=== PATIENT | female | born 1975 | race Caucasian/White ===

== ENCOUNTER 2022-12-03 21:06 | Emergency (ER) | payer BC ==
[2022-12-03] MEDS ORDERED: MORPHINE 4 MG/ML SYR ONE ×2 (21:42→22:54)
[2022-12-03] MEDS ORDERED: ONDANSETRON 4 MG/2 ML VIAL ONE (21:43)
[2022-12-03] MEDS ORDERED: KETOROLAC 30 MG/ML INJ ONE (21:43)
[2022-12-03] MEDS ORDERED: NA CHLORIDE 0.9% 1,000 ML ONE (21:43)
[2022-12-03] MEDS ORDERED: TDAP (DIPHTH,PERTUSS(ACELL),TET VAC) 0.5 ML VIAL IMVAC ONE (21:43)
--- NOTE | 2022-12-03 22:07 | EDPHYS ---
Physician Documentation [facility] Name: Kirti Storey Age: 47 yrs Sex: Female : 1975 Arrival Date: 12/03/2022 Time: 21:06 Bed 7 Private MD: ED Physician Aiden Chao HPI: 12/03 21:19 This 47 yrs old Female presents to ER via EMS with complaints of Fall Injury. mary jo 21:19 Details of fall: The patient fell from a height, down approximately 2 stairs. Onset: mary jo The symptoms/episode began/occurred just prior to arrival. Associated injuries: The patient sustained right bonner, decreased range of motion, painful injury, swelling. 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 - Social history:: Smoking status: Patient denies any tobacco usage or history of. - Family history:: not pertinent. ROS: 21:19 Constitutional: Negative for fever, chills, and weight loss, Eyes: Negative for injury, mary jo pain, redness, and discharge, ENT: Negative for injury, pain, and discharge, Neck: Negative for injury, pain, and swelling, Cardiovascular: Negative for chest pain, palpitations, and edema, Respiratory: Negative for shortness of breath, cough, wheezing, and pleuritic chest pain, Abdomen/GI: Negative for abdominal pain, nausea, vomiting, diarrhea, and constipation, Back: Negative for injury and pain, : Negative for injury, bleeding, discharge, and swelling, Skin: Negative for injury, rash, and discoloration, Neuro: Negative for headache, weakness, numbness, tingling, and seizure, Psych: Negative for depression, anxiety, suicide ideation, homicidal ideation, and hallucinations, Allergy/Immunology: Negative for hives, rash, and allergies, Endocrine: Negative for neck swelling, polydipsia, polyuria, polyphagia, and marked weight changes, Hematologic/Lymphatic: Negative for swollen nodes, abnormal bleeding, and unusual bruising, 21:19 MS/extremity: Positive for abrasion, decreased range of motion, pain, tenderness, of the right bonner, Exam: 21:19 Constitutional: This is a well developed, well nourished patient who is awake, alert, mary jo and in no acute distress. Head/Face: Normocephalic, atraumatic. Eyes: Pupils equal round and reactive to light, extra-ocular motions intact. Lids and lashes normal. Conjunctiva and sclera are non-icteric and not injected. Cornea within normal limits. Periorbital areas with no swelling, redness, or edema. ENT: Nares patent. No nasal discharge, no septal abnormalities noted. Tympanic membranes are normal and external auditory canals are clear. Oropharynx with no redness, swelling, or masses, exudates, or evidence of obstruction, uvula midline. Mucous membranes moist. Neck: Trachea midline, no thyromegaly or masses palpated, and no cervical lymphadenopathy. Supple, full range of motion without nuchal rigidity, or vertebral point tenderness. No Meningismus. Chest/axilla: Normal chest wall appearance and motion. Nontender with no deformity. No lesions are appreciated. Cardiovascular: Regular rate and rhythm with a normal S1 and S2. No gallops, murmurs, or rubs. Normal PMI, no JVD. No pulse deficits. Respiratory: Lungs have equal breath sounds bilaterally, clear to auscultation and percussion. No rales, rhonchi or wheezes noted. No increased work of breathing, no retractions or nasal flaring. Abdomen/GI: Soft, non-tender, with normal bowel sounds. No distension or tympany. No guarding or rebound. No evidence of tenderness throughout. Back: No spinal tenderness. No costovertebral tenderness. Full range of motion. Skin: Warm, dry with normal turgor. Normal color with no rashes, no lesions, and no evidence of cellulitis. Neuro: Awake and alert, GCS 15, oriented to person, place, time, and situation. Cranial nerves II-XII grossly intact. Motor strength 5/5 in all extremities. Sensory grossly intact. Cerebellar exam normal. Normal gait. Psych: Awake, alert, with orientation to person, place and time. Behavior, mood, and affect are within normal limits. 21:19 Musculoskeletal/extremity: ROM: limited active range of motion due to pain, limited passive range of motion due to pain, Circulation is intact in all extremities. Sensation intact. Compartment Syndrome exam of affected extremity: is normal. Weight bearing: is unable to bear weight, DVT Exam: pain, swelling, tenderness, of the right leg, of the right bonner, Vital Signs: 21:10 Pulse 93; Resp 16; Pulse Ox 98% on R/A; kd3 21:12 BP 128 / 67; Weight 90.72 kg; kd3 22:00 BP 97 / 53; Pulse 86; Resp 18; Pulse Ox 97% on R/A; kd3 Corky Coma Score: 22:00 Eye Response: spontaneous(4). Motor Response: obeys commands(6). Verbal Response: rv oriented(5). Total: 15. Trauma Score (Adult): 22:00 Eye Response: spontaneous(1); Verbal Response: oriented(1); Motor Response: obeys rv commands(2); Systolic BP: > 89 mm Hg(4); Respiratory Rate: 10 to 29 per min(4); [place] Score: 15; Trauma Score: 12 MDM: 21:12 Patient medically screened. [facility] 21:22 Differential diagnosis: contusion, fracture, sprain, strain. Data reviewed: vital mary jo signs, nurses notes, lab test result(s), radiologic studies, plain films. Consideration of Admission/Observation Escalation of care including admission/observation considered. I considered the following discharge prescriptions or medication management in the emergency department Medications were administered in the Emergency Department. See MAR. Independent interpretation of the following test(s) in the Emergency Department X-Ray: My interpretation is tib fib fx. Test considered but Not performed: CT: no ct tib done. Historians other than the Patient: Family Member: various members. Care significantly affected by the following chronic conditions: none. 12/03 21:14 Order name: CBC with Diff; Complete Time: 22:40 [facility] 12/03 21:14 Order name: Comprehensive Metabolic Panel; Complete Time: 22:40 [facility] 12/03 21:14 Order name: Tib Fib Right XRAY; Complete Time: 22:40 [facility] 12/03 21:14 Order name: Ice pack; Complete Time: 21:56 [facility] 12/03 22:05 Order name: Splint - Long Leg: Posterior w/ Stirrup; Complete Time: 22:42 [facility] 12/03 22:05 Order name: Crutch Training; Complete Time: 22:42 [facility] Administered Medications: 21:46 Drug: NS 0.9% IV 1000 ml IV at 1 bolus Per protocol; 1000 mL bolus Route: IV; Rate: 1 kd3 bolus; Site: left antecubital; 23:02 Follow up: IV Status: Completed infusion; IV Intake: 1000ml rv 21:46 Drug: Ketorolac IVP 30 mg IVP once Route: IVP; Site: left antecubital; kd3 23:01 Follow up: Response: No adverse reaction rv 21:46 Drug: morphine IVP or IV 4 mg IVP once over 4 mins Route: IVP; Infused Over: 4 mins; kd3 Site: left antecubital; 23:01 Follow up: Response: No adverse reaction rv 21:46 Drug: Ondansetron IVP 4 mg IVP once; over 2 minutes Route: IVP; Site: left antecubital; kd3 23:01 Follow up: Response: No adverse reaction rv 22:00 CANCELLED (Duplicate Order): tetanus toxoid,adsorbed0.5 ml IM once; Provide Vaccine kd3 Information Statement (VIS). 22:00 Drug: Boostrix Tdap IM 0.5 ml IM once; as a single dose Route: IM; Site: left deltoid; kd3 23:01 Follow up: Response: No adverse reaction rv 22:43 Drug: morphine 4 mg IVP once over 4 mins Route: IVP; Infused Over: 4 mins; Site: left kd3 antecubital; 23:01 Follow up: Response: Medication administered at discharge. rv Disposition Summary: 12/03/22 22:07 Discharge Ordered Notes: Location: Home mary jo Problem: new mary jo Symptoms: have improved mary jo Condition: Stable mary jo Diagnosis - Fall (on) (from) other stairs and steps mary jo - Displaced spiral fracture of shaft of left tibia mary jo - Displaced oblique fracture of shaft of unspecified fibula, initial encounter for mary jo closed fracture Followup: mary jo - With: Private Physician - When: 2 - 3 days - Reason: Recheck today's complaints, Continuance of care, Re-evaluation by your physician Followup: mary jo - With: Conor Soto MD - When: 2 - 3 days - Reason: Recheck today's complaints, Re-evaluation by your physician Discharge Instructions: - Discharge Summary Sheet mary jo - Tibial and Fibular Fractures mary jo - Tibial Fracture, Adult mary jo - Tibial Fracture, Adult, [id number] mary jo Forms: - Medication Reconciliation Form mary jo - Thank You Letter mary jo - Antibiotic Education mary jo - Prescription Opioid Use mary jo - Patient Portal Instructions mary jo - Leadership Thank You Letter mary jo Prescriptions: - acetaminophen-codeine 300-30 mg Oral tablet - take 2 tablet ORAL route every 6 hours as needed for pain; 30 tablet; Refills: [facility] 0, Product Selection Permitted - ondansetron 4 mg Oral Tablet,disintegrating - take 1 tablet ORAL route every 6 hours for 5 days; 20 tablet; Refills: 0, [facility] Product Selection Permitted - Valium 5 mg Oral Tablet - take 1 tablet ORAL route every 8 hours As needed; 20 tablet; Refills: 0, [facility] Product Selection Permitted - Diclofenac Sodium 75 mg Oral tablet, delayed release (enteric coated) - take 1 tablet ORAL route 2 times per day; 20 tablet; Refills: 0, Product [facility] Selection Permitted Signatures: Dispatcher [employer] EDAiden Brown MD MD cha Doucette, Kyli RN RN kd3 Juan Simon RN rv Corrections: (The following items were deleted from the chart) 22:00 21:14 Tetanus Toxoid,Adsorbed IM 0.5 ml IM once; Provide Vaccine Information Statement kd3 (VIS). ordered. [facility] 22:00 22:00 Tetanus Toxoid,Adsorbed IM 0.5 ml IM once; Provide Vaccine Information Statement kd3 (VIS). ordered. kd3
--- NOTE | 2022-12-03 22:07 | ER ---
Nurse's Notes [facility] Name: Kirti Storey Age: 47 yrs Sex: Female : 1975 Arrival Date: 12/03/2022 Time: 21:06 Bed 7 Private MD: Diagnosis: Fall (on) (from) other stairs and steps;Displaced spiral fracture of shaft of left tibia;Displaced oblique fracture of shaft of unspecified fibula, initial encounter for closed fracture Presentation: 12/03 21:10 Chief complaint: EMS states: Pt fell approximately 3 steps and reports that she thinks kd3 her right leg might be broken. Pt was placed in a splint of scene. Pt has scrapes noted to the left bonner area. Pt reports 8/10 pain to the right leg. Pulses are present and strong in both pedal pulses. Coronavirus screen: Vaccine status:. Ebola Screen: No symptoms or risks identified at this time. Initial Sepsis Screen: Does the patient meet any 2 criteria? No. Patient's initial sepsis screen is negative. Does the patient have a suspected source of infection? No. Patient's initial sepsis screen is negative. Risk Assessment: Do you want to hurt yourself or someone else? Patient reports no desire to harm self or others. Onset of symptoms was December 03, 2022. 21:10 Method Of Arrival: EMS: [facility] kd3 21:10 Acuity: JUAN C 3 kd3 21:12 Coronavirus screen: Vaccine status: Patient reports receiving the 2nd dose of the covid kd3 vaccine. Triage Assessment: 21:12 General: Appears uncomfortable, Behavior is calm, cooperative. Pain: Complains of pain kd3 in right bonner. Neuro: Level of Consciousness is awake, alert, obeys commands, Oriented to person, place, time, situation. Respiratory: Airway is patent Trachea midline Respiratory effort is even, unlabored, Respiratory pattern is regular, symmetrical. 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 - Social history:: Smoking status: Patient denies any tobacco usage or history of. - Family history:: not pertinent. Screenin:00 [facility] ED Fall Risk Assessment (Adult) History of falling in the last 3 months, rv including since admission Yes- single mechanical fall (1 pt) Score/Fall Risk Level 3 or more points = High Risk Oriented to surroundings, Maintained a safe environment, Educated pt \T\ family on fall prevention, incl call for assistance when getting out of bed, Assessed \T\ reinforced patient's understanding of fall precautions, Provided non-skid footwear, Hourly rounding (assess needs \T\ fall precautionary measures) done, Used ambulatory aids as needed (educated on \T\ assisted with), Used gait belt as appropriate Implemented a Fall Risk Plan of Care, Apply high fall risk patient identification: yellow non skid footwear/ fall signage, Placed fall mat w/ non beveled edge next to bed, Activated bed/chair alarm, Remained w/in arm's length of patient and in sight while toileting, Offered frequent toileting (1:1 observation), Remained with patient while ambulating, Utilized family, sitter, or virtual brusher and shearer as indicated. Abuse screen: Denies threats or abuse. Denies injuries from another. 22:00 Nutritional screening: No deficits noted. Tuberculosis screening: No symptoms or risk rv factors identified. Primary Survey: 22:00 NO uncontrolled hemorrhage observed. Breathing/Chest: Spontaneous respiratory effort, rv equal unlabored respirations, breath sounds clear bilaterally, regular pattern, symmetrical chest rise and fall. 22:00 Circulation: No external hemorrhage present. Regular and strong central pulse, skin rv warm/dry/normal color. Disability Pupils are equal, round, reactive to light and accommodation. Client is alert. Exposure/Environment: A warming method has been applied: A warm blanket has been provided to the patient. Assessment: 22:00 General: Appears uncomfortable, Behavior is calm, cooperative. Pain: Complains of pain kd3 in right bonner. Neuro: Level of Consciousness is awake, alert, obeys commands, Oriented to person, place, time, situation. Cardiovascular: Patient's skin is warm and dry. Respiratory: Airway is patent Trachea midline Respiratory effort is even, unlabored, Respiratory pattern is regular, symmetrical. Vital Signs: 21:10 Pulse 93; Resp 16; Pulse Ox 98% on R/A; kd3 21:12 BP 128 / 67; Weight 90.72 kg; kd3 22:00 BP 97 / 53; Pulse 86; Resp 18; Pulse Ox 97% on R/A; kd3 Corky Coma Score: 22:00 Eye Response: spontaneous(4). Motor Response: obeys commands(6). Verbal Response: rv oriented(5). Total: 15. Trauma Score (Adult): 22:00 Eye Response: spontaneous(1); Verbal Response: oriented(1); Motor Response: obeys rv commands(2); Systolic BP: > 89 mm Hg(4); Respiratory Rate: 10 to 29 per min(4); [place] Score: 15; Trauma Score: 12 ED Course: 21:10 Patient arrived in ED. kd3 21:12 Aiden Chao MD is Attending Physician. mary jo 21:12 Triage completed. kd3 21:12 Arm band placed on right wrist. kd3 21:16 Rhonda Alcazar, RUBEN is Primary Nurse. kd3 21:46 CBC with Diff Sent. kd3 21:46 Comprehensive Metabolic Panel Sent. kd3 21:47 Inserted saline lock: 20 gauge in left antecubital area, using aseptic technique. Blood kd3 collected. 22:00 Patient has correct armband on for positive identification. rv 22:00 Provided Education on: crutch. rv 22:05 Conor Soto MD is Referral Physician. mary jo 22:19 Tib Fib Right XRAY In Process Unspecified. EDMS 23:03 No provider procedures requiring assistance completed. IV discontinued, intact, rv bleeding controlled, No redness/swelling at site. Pressure dressing applied. Administered Medications: :46 Drug: NS 0.9% IV 1000 ml IV at 1 bolus Per protocol; 1000 mL bolus Route: IV; Rate: 1 kd3 bolus; Site: left antecubital; 23:02 Follow up: IV Status: Completed infusion; IV Intake: 1000ml rv :46 Drug: Ketorolac IVP 30 mg IVP once Route: IVP; Site: left antecubital; kd3 23:01 Follow up: Response: No adverse reaction rv :46 Drug: morphine IVP or IV 4 mg IVP once over 4 mins Route: IVP; Infused Over: 4 mins; kd3 Site: left antecubital; 23:01 Follow up: Response: No adverse reaction rv :46 Drug: Ondansetron IVP 4 mg IVP once; over 2 minutes Route: IVP; Site: left antecubital; kd3 23:01 Follow up: Response: No adverse reaction rv 22:00 CANCELLED (Duplicate Order): tetanus toxoid,adsorbed0.5 ml IM once; Provide Vaccine kd3 Information Statement (VIS). 22:00 Drug: Boostrix Tdap IM 0.5 ml IM once; as a single dose Route: IM; Site: left deltoid; kd3 23:01 Follow up: Response: No adverse reaction rv 22:43 Drug: morphine 4 mg IVP once over 4 mins Route: IVP; Infused Over: 4 mins; Site: left kd3 antecubital; 23:01 Follow up: Response: Medication administered at discharge. rv Medication: 23:04 Vaccine Information Statement (VIS) provided today. Questions and/or concerns rv addressed. VIS edition date: December 03, 2022. Intake: 23:02 IV: 1000ml; Total: 1000ml. rv Outcome: 22:07 Discharge ordered by . mary jo 23:04 Discharged to home via wheelchair, with family, kd3 23:04 Condition: stable 23:04 Discharge instructions given to patient, family, Instructed on discharge instructions, follow up and referral plans. medication usage, Demonstrated understanding of instructions, follow-up care, medications, 23:04 Patient left the ED. rv Signatures: Dispatcher [employer] EDMS Aiden Chao MD MD cha Vicente, Ronaldo, RN RN Rhonda Castaneda RN RN kd3
[2022-12-03 22:22] LABS: Absolute Lymphocytes (CBC) 3.2 K/uL (0.7-4.9); Lymphocytes % 29.4 % (15.3-44.8); MCV 95.7 fL (80-100); Platelets 301 thou/uL (152-406); RBC Red Blood Cell Count 4.29 M/uL (3.86-4.86)
--- NOTE | 2022-12-03 22:26 | RAD REPORT ---
EXAM DESCRIPTION: RAD - Tib Fib Right - 12/03/2022 10:17 pm CLINICAL HISTORY: PAIN COMPARISON: No comparisons TECHNIQUE: Right tibia and fibula, 2 views. FINDINGS: Comminuted fractures of the distal tibia and fibula. There is no dislocation or periosteal reaction noted. No acute or suspicious bony finding. No foreign body or other soft tissue abnormality. IMPRESSION: Comminuted fractures of the distal tibia and fibula.
[2022-12-03 22:39] LABS: Albumin 3.5 g/dL (3.4-5.0); Bilirubin Total 0.2 mg/dL (0.2-1.0); Potassium 4.1 mEq/L (3.5-5.1); Protein, Total 7.4 g/dL (6.4-8.2)
[2022-12-04 01:13] VITALS: BP 97/53; O2SAT 97
== END 2022-12-03 23:04 | disposition home or self-care (01) ==
LOC: ER 21:06
PROC: 2W3MX1Z Immobilization of Left Lower Extremity using Splint (ICD-10-PCS; principal; 2022-12-03)
DX: S82.242A Displaced spiral fracture of shaft of left tibia, initial encounter for closed fracture (principal); S82.432A Displaced oblique fracture of shaft of left fibula, initial encounter for closed fracture; W10.8XXA Fall (on) (from) other stairs and steps, initial encounter
CPT/HCPCS: 85025; 36415; 80053; 73590; 29505; J2405; J7030